=== PATIENT | male | born 1970 | race Caucasian/White ===

== ENCOUNTER 2016-12-10 11:24 | Outpatient (CLI) | payer MEDICARE, OTHER ==
[2016-12-10 13:46] LABS: #Basophils 0.1 thou/uL (0.0-0.2); #Eosinphils 0.1 thou/uL (0.0-0.7); #Lymphocytes 2.4 thou/uL (1.20-3.40); #Monocytes 0.4 thou/uL (0.11-0.59); %Basophils 1.2 % (0.0-1.0); %Eosinophils 1.4 % (0.0-10.0); %Lymphocytes 39.9 % (21.0-51.0); %Monocytes 6.9 % (0.0-10.0); %Neutrophils 50.6 % (42.0-75.0); Hemoglobin 13.4 g/dL (14.0-18.0); Mean Corpuscular HGB CONC 32.3 g/dL (32.0-36.0); Mean Corpuscular Hemoglobin 30.2 pg (27.0-31.0); Mean Corpuscular Volume 93.5 fl (80.0-94.0); Mean Platelet Volume 6.6 fL (7.4-10.4); Platelet Count 249 thou/uL (130-400); RBC Distribution Width 11.7 % (11.5-14.5); Red Blood Cell (RBC) Count 4.44 mill/uL (4.70-6.10)
[2016-12-10 13:52] LABS: ALT (SGPT) 21 U/L (8-55); AST (SGOT) 21 U/L (5-34); Albumin 4.2 g/dL (3.5-5.0); Alkaline Phosphatase 88 U/L (40-150); Anion Gap 15 mmol/L (10-20); BUN (Urea Nitrogen) 10 mg/dL (8.9-20.6); Bilirubin, Direct 0.2 mg/dL (0.1-0.3); Bilirubin, Total 0.4 mg/dL (0.2-1.2); Calc. Creatinine Clearance 0 mL/min (70-130); Calcium 9.5 mg/dL (7.8-10.44); Carbon Dioxide 28 mmol/L (22-29); Cardiac Risk 6.3 (Less than 4.5); Chloride 103 mmol/L (98-107); Cholesterol 209 mg/dl (< 200 Desired); Estimated GFR-MDRD Greater than 90; Glucose 85 mg/dL (70-105); HDL Cholesterol 33 mg/dL (>60 Neg Risk); LDL Cholesterol, Calculated 141 mg/dL; Potassium 4.6 mmol/L (3.5-5.1); Sodium 141 mmol/L (136-145); Triglycerides 173 mg/dL (Less than 150)
[2016-12-10 14:15] LABS: Thyroid Stimulating Hormone 3.8467 uIU/mL (0.35-4.94); Vitamin D, 25 Hydroxy 50.1 ng/ml (> 30.0)
[2016-12-10 14:44] LABS: Hemoglobin A1c 5.5 % (4.0-6.0)
== END 2016-12-10 11:25 | disposition home or self-care (01) ==
LOC: NAVSJIPCSP 11:24
PROVIDERS: ATTEND Family Medicine
DX: E11.9 Type 2 diabetes mellitus without complications (principal); D68.2 Hereditary deficiency of other clotting factors; E03.9 Hypothyroidism, unspecified; E78.00 Pure hypercholesterolemia, unspecified; Z79.899 Other long term (current) drug therapy
CPT/HCPCS: 36415; 80048; 80061; 80076; 82306; 83036; 84443; 85025